=== PATIENT | female | born 1935 | race Caucasian/White ===

== ENCOUNTER → 2017-02-24 | Outpatient (CLI) | payer OTHER ==
[~2017-02-24] MED LIST: ALLEGRA ALLERG180 MG PO; ASPIR 8181 MG PO; ASPIRIN EC81 M1 PO; ATENOLOL 25 MG25 M1; ATENOLOL 50MG T50 M1 PO; CALCIUM 600 +1 EAC1 PO; CELEXA 10 MG TA10 M1; CELEXA 20 MG TA20 M1 PO; CELEXA 20 MG TA20 MG PO; CENTRUM SILVER1 EAC4 PO; CIPRO250 MG/51 PO; CLEOCIN HCL150 MG PO; CLONAZEPAM 0.50.5 M1 PO; FISH OIL 1,0001 EAC5 PO; FISH OIL 1,001000 M2 PO; FORTICAL NASAL; HYDROCODONE-AP1 EAC6 PO; LEVOTHYROXINE0.05 MG PO; LORATIDINE 10 M10 M1 PO; MYTAB GAS80 MG PO; NYSTATIN 1100000 U/M SWISH&SPIT; ONDANSETRON HCL8 MG PO; PRAVACHOL20 MG PO; PROTONIX 20 MG20 M1 PO; PROTONIX40 M2 PO; SYMBICORT80 MCG/4.1; SYNTHROID300 MCG; SYNTHROID50 MCG PO; TAMIFLU45 MG PO; TYLENOL325 MG PO; VENTOLIN HFA INH8 GM INH; VICODIN PO; VITAMIN D1000 UNI1 PO; VITAMIN D2000 UNI1 PO; ZPAK PO; [UNRECOGNIZED DRUG - OTHER] PO; [UNRECOGNIZED DRUG - OTHER] PO
== END ==
LOC: RAD 13:34
DX: Z12.31 Encounter for screening mammogram for malignant neoplasm of breast (principal)

== ENCOUNTER 2017-03-25 19:06 | Emergency (ER) | payer OTHER ==
[~2017-03-25] VITALS: Ht 152.4 cm; Wt 51.7 kg
[2017-03-25] MEDS ORDERED: RESTASIS1 EACH OPHTHALMIC (19:56)
[2017-03-25] MEDS ORDERED: ULTRAM 50MG TAB50 MG PO (20:51)
[2017-03-25] MEDS ORDERED: IBUPROFEN 600600 M1 PO (20:51)
[2017-03-25 21:00] VITALS: BP 173/67
== END 2017-03-25 21:12 | disposition home or self-care (01) ==
LOC: ER 19:06
DX: S92.912A Unspecified fracture of left toe(s), initial encounter for closed fracture (principal); E03.9 Hypothyroidism, unspecified; K21.9 Gastro-esophageal reflux disease without esophagitis; F41.9 Anxiety disorder, unspecified; F32.9 Major depressive disorder, single episode, unspecified; I12.9 Hypertensive chronic kidney disease with stage 1 through stage 4 chronic kidney disease, or unspecified chronic kidney disease; N18.9 Chronic kidney disease, unspecified; Z90.89 Acquired absence of other organs; Z96.0 Presence of urogenital implants; Z90.49 Acquired absence of other specified parts of digestive tract; Z85.3 Personal history of malignant neoplasm of breast; Z85.528 Personal history of other malignant neoplasm of kidney; Z92.21 Personal history of antineoplastic chemotherapy; Z92.3 Personal history of irradiation; Z91.041 Radiographic dye allergy status; Z88.0 Allergy status to penicillin; Z88.1 Allergy status to other antibiotic agents; Z88.8 Allergy status to other drugs, medicaments and biological substances; W20.8XXA Other cause of strike by thrown, projected or falling object, initial encounter; Y93.89 Activity, other specified; Y92.89 Other specified places as the place of occurrence of the external cause; Y99.8 Other external cause status

== ENCOUNTER → 2017-07-07 | Outpatient (CLI) | payer OTHER ==
[~2017-07-07] MED LIST changes: +IBUPROFEN 600600 M1 PO; +RESTASIS1 EACH OPHTHALMIC; +ULTRAM 50MG TAB50 MG PO
== END ==
LOC: RAD 12:47
DX: R10.9 Unspecified abdominal pain (principal); R05 Cough

== ENCOUNTER → 2017-07-09 | Outpatient (CLI) | payer OTHER | LOC: RAD 14:13 | DX: R13.10 Dysphagia, unspecified (principal) ==

== ENCOUNTER → 2017-07-28 | Outpatient (CLI) | payer OTHER ==
--- NOTE | ~2017-07-28 | P ---
[facility] [place] [address] PROCEDURE REPORT Name: IFEOMA NAVARRO Room #: REG [facility].#: [id number] Admission: 07/28/17 Attend Phys: Charanjit Nguyen Discharge: Date of : 37 Report #: [id number] THIS REPORT FOR: //name// CC: Charanjit Henderson MD DATE OF SERVICE: 07/28/2017 PROCEDURE PERFORMED: Upper endoscopy with esophageal dilation. HISTORY OF PRESENT ILLNESS: The patient is an 82-year-old female who was seen in the office by myself on 07/13/2017, with complaints of intermittent dysphagia, nausea, and vomiting. She has a previous history of gastric cancer, status post resection, chemotherapy and radiation therapy. She began taking Zofran, which was helpful. A barium swallow study on 07/09/2017, showed a single contrast esophagus study reveals functional swallow, the bolus passes completely to the right of the pharynx, this may be due to a stiff epiglottis, which does not completely invert and rest at an oblique angle. The esophagus was normal in caliber down to the stomach. There is a small sliding hiatal hernia. Multiple episodes of reflux were identified from the stomach back up into the esophagus. The distal stomach may be partial resected with an end-to-end anastomosis to the small bowel. PROCEDURE: The risks and benefits of the procedure were explained to the patient, those risks including, but not limited to bleeding, perforation, and the risk of sedation. She understood these risks and gave informed consent. Sedation was given using propofol per anesthesia. Next, using a standard Fujinon upper endoscope, the scope was placed in the patient's mouth and advanced under direct vision into the esophagus, the remaining stomach and into the duodenum and jejunum. The esophagus was normal throughout. There was no stricture or narrowing. The GE junction was normal. No esophagitis. Upon entering the stomach, a small hiatal hernia was noted. Surgical changes of the stomach were noted. There was a small remaining stomach. The anastomosis to the duodenum was widely patent. The scope passed through this area without difficulty. I was able to advance the scope well into the duodenum and jejunum, which was normal. At this point, the scope was then brought back up into the remaining stomach and a Savary guidewire was inserted through the scope, leaving the guidewire in place as the scope was then withdrawn. Next, a 48-Niuean Savary dilation of the esophagus was then performed without difficulty. The wire and dilator were removed. The scope was reintroduced into the patient's stomach. There was no evidence of mucosal tear after dilation. The scope was then withdrawn and the procedure terminated. The patient tolerated the procedure well. IMPRESSION: [facility] [address] [place] [address] PROCEDURE REPORT Name: IFEOMA NAVARRO Room #: REG [facility]#: [id number] Admission: 07/28/17 Attend Phys: Charanjit Nguyen Discharge: Date of : 36 Report #: [id number] 1. Surgical changes of gastric resection, anastomosis is patent. 2. Small hiatal hernia. 3. Otherwise, normal upper endoscopy. RECOMMENDATIONS: 1. Observe the patient post dilation. 2. If symptoms continue, consider esophageal manometry at that point. Thank you for allowing me to participate in her care. <ELECTRONICALLY SIGNED> By: Charanjit Robbins MD 07/30/17 0816 0925 1022 Charanjit Robbins MD /nt
== END | disposition home or self-care (01) ==
LOC: GI 07:40
DX: R13.19 Other dysphagia (principal); K21.9 Gastro-esophageal reflux disease without esophagitis; K44.9 Diaphragmatic hernia without obstruction or gangrene; Z85.028 Personal history of other malignant neoplasm of stomach; Z90.3 Acquired absence of stomach [part of]; Z88.0 Allergy status to penicillin; Z91.041 Radiographic dye allergy status; Z88.5 Allergy status to narcotic agent; Z91.09 Other allergy status, other than to drugs and biological substances; Z88.1 Allergy status to other antibiotic agents; Z79.82 Long term (current) use of aspirin; Z79.899 Other long term (current) drug therapy
CPT/HCPCS: 62110; 62900

== ENCOUNTER → 2018-02-24 | Outpatient (CLI) | payer OTHER | LOC: RAD 02:15 | DX: Z12.31 Encounter for screening mammogram for malignant neoplasm of breast (principal) ==

== ENCOUNTER 2018-09-17 13:05 | Emergency (ER) | payer OTHER ==
[~2018-09-17] VITALS: Ht 152.4 cm; Wt 49.2 kg
[2018-09-17] MEDS ORDERED: DYMISTA NASAL S23 GM NASAL (13:27)
[2018-09-17] MEDS ORDERED: XOLAIR150 MG (13:27)
[2018-09-17] MEDS ORDERED: TRAMADOL 50 MG50 MG PO (14:04)
[2018-09-17 14:32] VITALS: BP 112/49
== END 2018-09-17 14:35 | disposition home or self-care (01) ==
LOC: ER 13:05
DX: R06.02 Shortness of breath (principal); T42.8X5A Adverse effect of antiparkinsonism drugs and other central muscle-tone depressants, initial encounter; F32.9 Major depressive disorder, single episode, unspecified; F41.9 Anxiety disorder, unspecified; E03.9 Hypothyroidism, unspecified; I12.9 Hypertensive chronic kidney disease with stage 1 through stage 4 chronic kidney disease, or unspecified chronic kidney disease; N18.9 Chronic kidney disease, unspecified; K21.9 Gastro-esophageal reflux disease without esophagitis; Z88.8 Allergy status to other drugs, medicaments and biological substances; Z91.041 Radiographic dye allergy status; Z88.1 Allergy status to other antibiotic agents; Z88.0 Allergy status to penicillin; Z90.89 Acquired absence of other organs; Z90.49 Acquired absence of other specified parts of digestive tract; Z90.11 Acquired absence of right breast and nipple; Z85.3 Personal history of malignant neoplasm of breast; Z85.528 Personal history of other malignant neoplasm of kidney; Y92.89 Other specified places as the place of occurrence of the external cause

== ENCOUNTER → 2019-02-27 | Outpatient (CLI) | payer OTHER, SELFPAY ==
[~2019-02-27] MED LIST changes: +DYMISTA NASAL S23 GM NASAL; +TRAMADOL 50 MG50 MG PO; +XOLAIR150 MG
== END ==
LOC: BC 10:19
DX: Z12.31 Encounter for screening mammogram for malignant neoplasm of breast (principal)

== ENCOUNTER → 2019-05-22 | Outpatient (CLI) | payer OTHER, SELFPAY | LOC: ULTRA 10:25 | DX: N26.1 Atrophy of kidney (terminal) (principal); N20.9 Urinary calculus, unspecified ==

== ENCOUNTER 2019-10-21 22:52 | Emergency (ER) | payer OTHER ==
[~2019-10-21] VITALS: Ht 157.5 cm; Wt 59.0 kg
[2019-10-21] MEDS ORDERED: KEFLEX500 M1 PO (23:03)
[2019-10-21] MEDS ORDERED: BACTRIM DS TAB1 EAC1 PO (23:04)
[2019-10-21 23:19] LABS: URINE BILIRUBIN NEGATIVE (Negative); URINE BLOOD TRACE (Negative); URINE CLARITY SL CLOUDY; URINE COLOR YELLOW; URINE GLUCOSE-RANDOM* NEGATIVE (Negative); URINE KETONES NEGATIVE (Negative); URINE PROTEIN (DIPSTICK) NEGATIVE (Negative); URINE UROBILINOGEN 0.2 E.U./dl (0.2-1.0)
[2019-10-21] MEDS ORDERED: LEVO-T50 MCG PO (23:24)
[2019-10-21 23:28] LABS: URINE LEUKOCYTES-REFLEX 3+ (Negative); URINE NITRITE-REFLEX POSITIVE (Negative)
[2019-10-21 23:30] LABS: BACTERIA-REFLEX >30 Many /HPF (None Seen); CASTS None Seen /LPF (None Seen); MUCUS 0-3 Light strn/LPF (None Seen); SQUAMOUS None Seen /LPF (0-3); URINE WBC-REFLEX >25 Many /HPF (0-5); WBC CLUMPS Many (None Seen)
[2019-10-21 23:31] LABS: CRYSTALS None Seen /LPF (None Seen); URINE RBC 3-10 Few /HPF (0-2)
[2019-10-22 00:24] LABS: ANION GAP 8 mmol/L (7-16); BASOPHILS 1.1 % (0.0-2.0); BUN 27 mg/dL (7-18); CALCIUM 8.6 mg/dL (8.5-10.1); CHLORIDE 90 mmol/L (98-107); CO2 23 mmol/L (21-32); CREATININE 1.5 mg/dL (0.6-1.0); EOSINOPHILS 2.9 % (0.0-3.0); GLUCOSE 100 mg/dL (74-106); HEMATOCRIT 29.5 % (37.0-47.0); HEMOGLOBIN 9.5 gm/dL (12.0-15.0); LYMPHOCYTES 29.2 % (24.0-44.0); MCH 25.8 pg (26.0-34.0); MCHC 32.4 g/dL (28.0-37.0); MCV 79.7 fL (80.0-100.0); MONOCYTES 10.8 % (1.0-8.0); PLATELET COUNT 253 thou/uL (150-400); POTASSIUM 4.2 mmol/L (3.5-5.1); SODIUM 121 mmol/L (136-145); WBC 5.4 thou/uL (4.0-11.0)
[2019-10-22 00:34] LABS: ALBUMIN 3.6 g/dL (3.4-5.0); LIPASE 104 U/L (73-393); SGOT 19 U/L (15-37); SGPT 18 U/L (30-65); TOTAL BILIRUBIN 0.3 mg/dL (<0.1-1.0); TOTAL PROTEIN 8.1 g/dL (6.4-8.2); TROPONIN-I <0.06 ng/mL (<0.06)
[2019-10-22] MEDS ORDERED: BACTRIM DS TAB1 EACH PO (01:25)
[2019-10-22] MEDS ORDERED: FLOMAX0.4 MG PO (01:25)
[2019-10-22] MEDS ORDERED: TRAMADOL 50 MG50 MG PO (01:25)
[2019-10-22 01:59] VITALS: BP 182/62
--- NOTE | 2019-10-22 11:46 | EKG ---
[address] [place] [address] ELECTROCARDIOGRAM REPORT Name: IFEOMA NAVARRO Room #: DEP [facility]#: [id number] Admission: 10/21/19 Attend Phys: Discharge: 10/22/19 Date of : 36 Report #: [id number] THIS REPORT FOR: //name// [facility] ED Test Date: 2019-10-21 Test Time: 23:41:36 Pat Name: IFEOMA NAVARRO Department: Room: Gender: F Fertilizer Supervisor: milan juarez rn : 1935 Requested By: Fred Kumar Order Number: [id number] MD: Tano Lang Measurements Intervals [place] Rate: 57 P: 39 UT: 209 QRS: -55 QRSD: 133 T: 10 QT: 508 QTc: 495 Interpretive Statements Sinus bradycardia RBBB and LAFB Left ventricular hypertrophy Compared to ECG 11/26/2016 06:28:55 No significant changes Electronically Signed On 10-22-2019 11:45:57 ELIGIBILITY AND OCCUPANCY INTERVIEWER by Tano Lang [email or web address] <ELECTRONICALLY SIGNED> By: Taon Lang MD, [facility] 10/22/19 1145 2341 40 Tano Lang MD, FACC /EPI
--- NOTE | 2019-10-23 10:07 | EKG ---
[address] [place] [address] ELECTROCARDIOGRAM REPORT Name: IFEOMA NAVARRO Room #: DEP [facility]#: [id number] Admission: 10/21/19 Attend Phys: Discharge: 10/22/19 Date of : 36 Report #: [id number] THIS REPORT FOR: //name// [facility] ED Test Date: 2019-10-21 Test Time: 23:39:35 Pat Name: IFEOMA NAVARRO Department: Room: Gender: F Reading Recovery Teacher: milan juarez rn : 1935 Requested By: Fred Kumar Order Number: [id number] MD: Tano Lang Measurements Intervals [place] Rate: 59 P: 0 IN: 196 QRS: -32 QRSD: 132 T: -22 QT: 484 QTc: 480 Interpretive Statements Sinus rhythm IVCD, consider atypical RBBB Left ventricular hypertrophy Compared to ECG 11/26/2016 06:28:55 Missing limb lead 2 Electronically Signed On 10-23-2019 10:07:[address] INSTRUCTOR by Tano Lang [email or web address] <ELECTRONICALLY SIGNED> By: Tano Lang MD, [facility] 10/23/19 [facility] [phone] Tano Lang MD, [facility] /EPI
== END 2019-10-22 02:00 | disposition home or self-care (01) ==
LOC: ER 22:52
PROVIDERS: Emergency Medicine
DX: R33.9 Retention of urine, unspecified (principal); D50.8 Other iron deficiency anemias; R10.9 Unspecified abdominal pain; I12.9 Hypertensive chronic kidney disease with stage 1 through stage 4 chronic kidney disease, or unspecified chronic kidney disease; N18.9 Chronic kidney disease, unspecified; N13.5 Crossing vessel and stricture of ureter without hydronephrosis; N39.0 Urinary tract infection, site not specified; Z88.1 Allergy status to other antibiotic agents; Z88.0 Allergy status to penicillin; E03.9 Hypothyroidism, unspecified

== ENCOUNTER 2019-11-14 03:09 | Emergency (ER) | payer OTHER ==
[~2019-11-14] VITALS: Ht 152.4 cm; Wt 49.0 kg
[~2019-11-14 03:09] MED LIST changes: +BACTRIM DS TAB1 EAC1 PO; +BACTRIM DS TAB1 EACH PO; +FLOMAX0.4 MG PO; +KEFLEX500 M1 PO; +LEVO-T50 MCG PO
[2019-11-14] MEDS ORDERED: CEFDINIR250 MG/5 M PO (03:18)
[2019-11-14 04:03] LABS: URINE BILIRUBIN NEGATIVE (Negative); URINE BLOOD 1+ (Negative); URINE CLARITY CLOUDY; URINE COLOR YELLOW; URINE GLUCOSE-RANDOM* NEGATIVE (Negative); URINE KETONES NEGATIVE (Negative); URINE PROTEIN (DIPSTICK) NEGATIVE (Negative); URINE SPECIFIC GRAVITY <= 1.005 (1.005-1.035); URINE UROBILINOGEN 0.2 E.U./dl (0.2-1.0)
[2019-11-14 04:06] LABS: URINE LEUKOCYTES-REFLEX 3+ (Negative); URINE NITRITE-REFLEX POSITIVE (Negative)
[2019-11-14] MEDS ORDERED: SULFATRIM PEDI473 ML PO (04:27)
[2019-11-14] MEDS ORDERED: DIFLUCAN150 MG PO (04:27)
[2019-11-14 04:33] LABS: CASTS None Seen /LPF (None Seen); CRYSTALS None Seen /LPF (None Seen); MUCUS 0-3 Light strn/LPF (None Seen); SQUAMOUS 4-10 Moderate /LPF (0-3); URINE RBC 3-10 Few /HPF (0-2); URINE WBC-REFLEX >25 Many /HPF (0-5); WBC CLUMPS Moderate (None Seen)
[2019-11-14] MEDS ORDERED: CLOTRIMAZOLE-321 GM TOP (04:36)
[2019-11-14 04:54] VITALS: BP 149/95
== END 2019-11-14 04:56 | disposition home or self-care (01) ==
LOC: ER 03:09
PROVIDERS: Emergency Medicine Emergency Medical Services
DX: N39.0 Urinary tract infection, site not specified (principal); I12.9 Hypertensive chronic kidney disease with stage 1 through stage 4 chronic kidney disease, or unspecified chronic kidney disease; E03.9 Hypothyroidism, unspecified; N18.9 Chronic kidney disease, unspecified; K21.9 Gastro-esophageal reflux disease without esophagitis; F32.9 Major depressive disorder, single episode, unspecified; F41.9 Anxiety disorder, unspecified; Z90.11 Acquired absence of right breast and nipple; Z85.3 Personal history of malignant neoplasm of breast; Z90.49 Acquired absence of other specified parts of digestive tract; Z85.528 Personal history of other malignant neoplasm of kidney; Z98.51 Tubal ligation status; Z91.041 Radiographic dye allergy status; Z88.0 Allergy status to penicillin; Z88.1 Allergy status to other antibiotic agents

== ENCOUNTER → 2020-03-12 | Outpatient (CLI) | payer OTHER ==
[~2020-03-12] MED LIST changes: +CEFDINIR250 MG/5 M PO; +CLOTRIMAZOLE-321 GM TOP; +DIFLUCAN150 MG PO; +SULFATRIM PEDI473 ML PO
== END ==
LOC: BC 10:26
DX: Z12.31 Encounter for screening mammogram for malignant neoplasm of breast (principal)

== ENCOUNTER 2020-05-20 23:26 | Inpatient (IN) | payer OTHER ==
[~2020-05-20] VITALS: Ht 152.4 cm; Wt 47.6 kg
[2020-05-20 23:32] VITALS: BP 176/66
[2020-05-21] VITALS (10 sets, daily range): BP systolic 154–192; BP diastolic 61–79
[2020-05-21] MEDS ORDERED: FISH OIL 1,0001 EAC9 PO (00:40)
[2020-05-21] MEDS ORDERED: ASA81BEC PO (00:40)
[2020-05-21] MEDS ORDERED: PANTOPRAZOLE SO40 M1 PO (00:40)
[2020-05-21] MEDS ORDERED: CELEXA 20 MG TA20 MG PO (00:40)
[2020-05-21] MEDS ORDERED: CALCIUM CIT 311 EAC1 PO (00:41)
[2020-05-21 01:03] LABS: ABSOLUTE NEUTROPHILS 8.6 thou/uL (1.4-8.2); BASOPHILS 0.2 % (0.0-2.0); EOSINOPHILS 0.1 % (0.0-3.0); HEMATOCRIT 31.2 % (37.0-47.0); HEMOGLOBIN 10.2 gm/dL (12.0-15.0); LYMPHOCYTES 6.9 % (24.0-44.0); MCH 24.7 pg (26.0-34.0); MCHC 32.7 g/dL (28.0-37.0); MCV 75.3 fL (80.0-100.0); MONOCYTES 9.8 % (1.0-8.0); PLATELET COUNT 276 thou/uL (150-400); RBC 4.14 mil/uL (4.20-5.00); RDW 16.4 % (10.5-14.5); WBC 10.4 thou/uL (4.0-11.0)
[2020-05-21 01:05] LABS: CALCIUM 8.7 mg/dL (8.5-10.1); CREATININE 1.3 mg/dL (0.6-1.0); POTASSIUM 4.4 mmol/L (3.5-5.1)
[2020-05-21 01:14] LABS: ALBUMIN 3.7 g/dL (3.4-5.0); TOTAL BILIRUBIN 0.9 mg/dL (0.2-1.0); TOTAL PROTEIN 8.1 g/dL (6.4-8.2)
[2020-05-21 01:25] LABS: TROPONIN-I 11.15 ng/mL (<0.06)
[2020-05-21 02:14] LABS: INR 1.1; PROTIME 11.1 Seconds (9.3-11.4)
[2020-05-21 02:30] LABS: HEMATOCRIT 29.8 % (37.0-47.0); HEMOGLOBIN 9.8 gm/dL (12.0-15.0); MCH 24.8 pg (26.0-34.0); MCHC 33.1 g/dL (28.0-37.0); RBC 3.97 mil/uL (4.20-5.00); RDW 16.2 % (10.5-14.5); WBC 10.9 thou/uL (4.0-11.0)
--- NOTE | 2020-05-21 08:05 | EKG ---
[facility] [place] [address] ELECTROCARDIOGRAM REPORT Name: IFEOMA NAVARRO Room #: 170 ADM IN M.R.#: [id number] Admission: 05/21/20 Attend Phys: Mikal Flowers MD Discharge: Date of : 36 Report #: [id number] THIS REPORT FOR: cc: Kwabena Kebede MD, Stanley P. MD Lundgren,Tano Monae MD [facility] ~ THIS REPORT FOR: //name// [facility] ED Test Date: 2020-05-21 Test Time: 00:29:18 Pat Name: IFEOMA NAVARRO Department: Room: 170 2 Gender: F Limousine And Hearse Upholsterer: Rosendo : 1935 Requested By: Nicole Mckoy Order Number: [id number] : Tano Lang Measurements Intervals [place] Rate: 65 P: 65 SD: 185 QRS: -71 QRSD: 127 T: -13 QT: 470 QTc: 489 Interpretive Statements Sinus rhythm RBBB and LAFB Left ventricular hypertrophy Anterior ST elevation Compared to ECG 10/21/2019 23:41:36 ST (T wave) deviation more pronounced Sinus bradycardia no longer present Electronically Signed On 05-21-2020 8:05:20 CDT by Tano Lang [email or web address] <ELECTRONICALLY SIGNED> By: Tano Lang MD, [facility] 05/21/20 0805 0029 0029 Tano Lang MD, [facility] /EPI
--- NOTE | 2020-05-21 08:06 | EKG ---
[facility] [address] ELECTROCARDIOGRAM REPORT Name: IFEOMA NAVARRO Room #: 170- ADM IN M.R.#: [id number] Admission: 05/21/20 Attend Phys: Mikal Flowers MD Discharge: Date of : 36 Report #: [id number] THIS REPORT FOR: cc: Kwabean Kebede MD, Stanley P. MD Lundgren, Craig H. MD [facility] ~ THIS REPORT FOR: //name// [facility] ED Test Date: 2020-05-21 Test Time: 01:29:50 Pat Name: IFEOMA NAVARRO Department: Room: [facility] Gender: F Sugar Plantation Manager: [facility] : 1935 Requested By: Pepito Gibson Order Number: [id number] MD: Tano Lang Measurements Intervals [place] Rate: 66 P: 78 HI: 186 QRS: -70 QRSD: 126 T: -19 QT: 464 QTc: 487 Interpretive Statements Sinus rhythm Consider left atrial enlargement RBBB and LAFB Left ventricular hypertrophy Anterior ST elevation Compared to ECG 05/21/2020 00:29:18 No significant changes Electronically Signed On 05-21-2020 8:06:19 CDT by Tano Lang [email or web address] <ELECTRONICALLY SIGNED> By: Tano Lang MD, [facility] 05/21/20 0806 8 8 Tano Lang MD, [facility] /EPI
--- NOTE | 2020-05-21 08:49 | NUR ---
HOLD ACKNOWLEDGE DONE TO REQUEST ALL THE MORNING MEDS FROM THE PHARMACY.
--- NOTE | 2020-05-21 08:50 | NUR ---
PER LAB THEY HAVE ALL THE COVID TEST THEY NEED AND ARE NOT WAITING ON ANY OTHERS.
[2020-05-21 11:56] LABS: CHOLESTEROL 123 mg/dL (<200); HDL CHOLESTEROL 78 mg/dL (>40); LDL CHOLESTEROL 34 mg/dL (<100); TC:HDL 1.6 Ratio (Not establshd); TRIGLYCERIDE 57 mg/dL (<150); VLDL 11 mg/dL (<40)
[2020-05-21 12:02] LABS: TROPONIN-I 8.62 ng/mL (<0.06)
--- NOTE | 2020-05-21 12:36 | 2DMMODE ---
[facility] [place] [address] 2 D/M-MODE ECHOCARDIOGRAM Name: IFEOMA NAVARRO Room #: 160-1 ADM IN M.R.#: [id number] Admission: 05/21/20 Attend Phys: Mikal Flowers MD Discharge: Date of : 36 Report #: [id number] THIS REPORT FOR: cc: Kwabena Kebede MD, Stanley P. MD Park, Jin S. MD ~ APPROVED REPORT Study performed: 05/21/2020 11:01:45 EXAM: Comprehensive 2D, Doppler, and color-flow Echocardiogram Patient Location: In-Patient Room #: CV Holding Status: routine BSA: 1.44 HR: 60 bpm BP: 138/51 mmHg Rhythm: NSR Other Information Study Quality: Good Indications Elevated troponin, NSTEMI. Status post heart cath. 2D Dimensions RVDd: 36.26 mm IVSd: 12.03 (7-11mm) LVOT Diam: 18.79 (18-24mm) LVDd: 39.76 mm PWd: 11.00 (7-11mm) Ascending Ao: 30.69 (22-36mm) LVDs: 30.21 (25-40mm) Aortic Root: 32.18 mm Volumes Left Atrial Volume (Systole) Single Plane 4CH: 51.31 mL Single Plane 2CH: 67.80 mL LA ESV Index: 43.00 mL/m2 Aortic Valve AoV Peak Andrei.: 1.15 m/s AO Peak Gr.: 5.32 mmHg LVOT Max P.97 mmHg LVOT Max V: 0.86 m/s DOMINGO Vmax: 2.07 cm2 AI Vmax: 3.71 m/s [facility] [address] [address] 2 D/M-MODE ECHOCARDIOGRAM Name: NAVARROIFEOMA Narvaez Room #: 160-1 [facility] IN [facility]#: [id number] Admission: 05/21/20 Attend Phys: Taj Donovan Discharge: Date of : 36 Report #: [id number] AI [place]: 2.57 m/s2 AI PHT: 419.50 ms Mitral Valve E/A Ratio: 2.0 MV Decel. Time: 184.20 ms MV E Max Andrei.: 1.05 m/s MV A Andrei.: 0.52 m/s MV PHT: 53.42 ms IVRT: 78.43 ms Pulmonary Valve PV Peak Andrei.: 0.52 m/s PV Peak Gr.: 1.07 mmHg Tricuspid Valve TR Peak Andrei.: 2.42 m/s RAP Estimate: 10.00 mmHg TR Peak Gr.: 24.00 mmHg PA Pressure: 34.00 mmHg Left Ventricle The left ventricle is normal size. Hypokinesis of the inferior wall. Mild concentric left ventricular hypertrophy. Left ventricular systolic function is normal. LVEF is 50-55%. Grade IV - fixed restrictive diastolic dysfunction. Right Ventricle The right ventricle is normal size. Atria Left atrium is moderately dilated. The right atrium size is normal. Aortic Valve Aortic valve leaflets are mildly thickened. Mild to moderate aortic regurgitation. There is no aortic valvular stenosis. Mitral Valve Mitral valve leaflets are thickened. Moderate mitral regurgitation. No evidence of mitral valve stenosis. Tricuspid Valve The tricuspid valve is normal in structure. Mild to moderate tricuspid regurgitation. Estimated PAP is 30-35mmHg. Pulmonic Valve The pulmonary valve is normal in structure. Trace pulmonic [facility] [address] [place] [address] 2 D/M-MODE ECHOCARDIOGRAM Name: RAMONIFEOMA Solange Room #: 160-1 [facility] IN .R.#: [id number] Admission: 05/21/20 Attend Phys: Taj Donovan Discharge: Date of : 36 Report #: [id number] regurgitation. Great Vessels The aortic root is normal in size. The ascending aorta is normal in size. IVC is normal in size and collapses <50% with inspiration. Pericardium There is no pericardial effusion. <Conclusion> The left ventricle is normal size. Mild concentric left ventricular hypertrophy. Left ventricular systolic function is normal. Hypokinesis of the inferior wall. The right ventricle is normal size. Left atrium is moderately dilated. Mild to moderate aortic regurgitation. Moderate mitral regurgitation. Mild to moderate tricuspid regurgitation. Estimated PAP is 30-35mmHg. <ELECTRONICALLY SIGNED> By: Sav Reagan MD 05/21/20 1236 1236 1236 Sav Reagan MD /INF
--- NOTE | 2020-05-21 16:05 | NUR ---
SBP 190. Hydralazine 10 mg IV given prior to right groin line pull. Dr. Flowers in to see patient.
--- NOTE | 2020-05-21 16:07 | NUR ---
Report was called to Esperanza GILBERT on CCU by Trinidad Gutierrez RN prior to Trinidad Gutierrez leaving. This RN took over care at that time. 1550.
--- NOTE | 2020-05-21 16:21 | CATHLAB ---
[facility] [place] [address] INVASIVE PROCEDURE REPORT Name: IFEOMA NAVARRO Room #: 160-1 ADM IN M.R.#: [id number] Admission: 05/21/20 Attend Phys: Mikal Flowers MD Discharge: Date of : 36 Report #: [id number] THIS REPORT FOR: cc: Kwabena Kebede MD, Stanley P. MD Park, Jin S. MD ~ APPROVED REPORT Study performed: 05/21/2020 09:21:41 Patient Details Patient Status: ED Room #: The patient is a 85 year-old female Event Personnel Sav Reagan Acidizer Water [place], Bert Mckeon RN RN, Naida Hernandez RTR, BRITANY Scrub, Citlalli Ferguson RTR Monitor Procedures Performed Art Access - R femoral artery* Left Heart Cath w/or w/o Coronaries [id number] [facility] [address] Initial Mod Sed Same Phys/QHP Gr5y 773065 22996 Mod Sed Same Phys/QHP Ea 907169 Indication Non-STEMI , Dyspnea, Unstable angina , Chest pain Risk Factors Hypercholesterolemia, Hypertension Procedure Narrative The Right Groin^ was infiltrated with 1% Lidocaine subcutaneous anesthesia. A PINNACLE 4FR Sheath #[id number] sheath was inserted into the RFA^. Coronary angiography was performed using coronary diagnostic catheters. The right coronary system was accessed and visualized with a JR4 catheter. The left coronary system was accessed and visualized with a JL4 catheter. The left ventricle was accessed and visualized with a PIGTAIL catheter. The patient tolerated the procedure well and there were no complications associated with the procedure. Intraoperative Conscious Sedation Sedation start time: 10:09 Case end Time: 10:35 Fentanyl 25 mcg Versed 1 mg [facility] [address] [place] [address] INVASIVE PROCEDURE REPORT Name: IFEOMA NAVARRO Room #: 160-1 ADM IN [facility].#: [id number] Admission: 05/21/20 Attend Phys: Taj Donovan Discharge: Date of : 36 Report #: [id number] Fluoro Time: 2.80 minutes Dose: DAP 2446.00 cGycm2 679 mGy Contrast Type and Amount: Visipaque 40 ml Coronary Angiography The patient's coronary anatomy is right dominant. Diagnostic Cath Left Main Left main artery is a large-caliber vessel, patent with no flow-limiting lesions. LAD The LAD is a moderate-sized caliber vessel, traverses the anterior wall and wraps around the apex. There is moderate disease in the distal segment, 50%. Diagonal 1 This is a moderate-sized caliber vessel with mild disease in the proximal segment. Circumflex There is a severe occlusion within the midsegment, 80 to 90%. OM1 This is a moderate-sized caliber vessel, with a borderline stenosis proximally, recommend medical therapy. OM2 This is a patent vessel, with mild disease proximally. Right Coronary The RCA is a dominant vessel with a severe occlusion at the ostium and midsegment. R PDA This vessel is patent with mild diffuse disease. RPLV This vessel is patent with mild diffuse disease. Left Ventriculography Left Ventriculography was not performed. An LVEDP was measured and there is no gradient across the outflow tract. Hemodynamics The aortic pressure is 128/51 mmHg with a mean of 68 mmHg. The left ventricular pressure is 112/13 mmHg with a mean of mmHg. The left ventricular end diastolic pressure is 19 mmHg. Conclusion 1. 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 2. There is a borderline stenosis in the first obtuse marginal artery, recommend medical therapy. 3. Recommend percutaneous coronary intervention and guideline directed medical therapy. <ELECTRONICALLY SIGNED> By: Sav Reagan MD 05/21/20 1621 162 162 Sav Reagan MD /INF
--- NOTE | 2020-05-21 16:32 | CATHLAB ---
[facility] [place] [address] INVASIVE PROCEDURE REPORT Name: IFEOMA NAVARRO Room #: 160-1 ADM IN M.R.#: [id number] Admission: 05/21/20 Attend Phys: Mikal Flowers MD Discharge: Date of : 36 Report #: [id number] THIS REPORT FOR: cc: Kwabena Kebede MD, Stanley P. MD Park, Jin S. MD ~ APPROVED REPORT Study performed: 05/21/2020 12:27:00 Patient Details Patient Status: ED Room #: The patient is a 85 year-old female Event Personnel Sav Reagan Electronic System Engineer, Dianna Gutierrez RN RN, Naida Hernandez RTR, Muriel Cabrera Ja'net RTR Monitor Procedures Performed Art Access - R femoral artery* PAM Place w/wo Plasty Single CIRC 409098 PAM Place w/wo Plasty Single RCA 573340 76671 Initial Mod Sed Same Phys/QHP Gr5y 255933 23470 Mod Sed Same Phys/QHP Ea 895165 Indication Non-STEMI , Dyspnea, Chest pain Risk Factors Hypercholesterolemia, Hypertension Procedure Narrative The patient was brought urgently to the Cardiac Catheterization Laboratory and was prepped and draped in a sterile manner. The RFG^ was infiltrated with 1% Lidocaine subcutaneous anesthesia. A PINNACLE 6FR Sheath #998124 sheath was inserted into the RFA. Coronary angiography was performed using coronary diagnostic catheters. The patient tolerated the procedure well and there were no complications associated with the procedure. There was no hematoma. Fluoro Time: 20.20 minutes Dose: DAP 69961.00 cGycm2 Contrast Type and Amount: Omnipaque 185 ml [place] Artery Percent Stenosis [facility] [address] [place] [address] INVASIVE PROCEDURE REPORT Name: IFEOMA NAVARRO Room #: 160-1 ADM IN [facility]#: [id number] Admission: 05/21/20 Attend Phys: Taj Donovan Discharge: Date of : 36 Report #: [id number] Please see the diagnostic cardiac catheterization for full details of the coronary anatomy. The patient has severe obstruction in the left circumflex and RCA. PCI Technique Lesion Percutaneous coronary intervention was performed on the mid circumflex artery segment. The lesion stenosis prior to intervention was 90% with SHERMAN 3 flow. A VISTA 6FR XB 3.5 #600344 Guide Catheter was used to engage the CIRCUMFLEX ostium. A Luge Wire .014 x 182CM #[id number] Interventional Guidewire was used to cross the lesion. BALLOON DILATION A Balloon catheter Euphora RX 2.0 x12 #[id number] was inserted and inflated up to 8.00atm for 15seconds. STENT DEPLOYMENT A stent RESOLUTE DAPHNE RX 2.25 X 15 #[id number] was inserted and inflated up to 10.00atm for 19seconds. POST STENT DEPLOYMENT BALLOON DILATION A Balloon catheter Euphora NC RX 2.25 x 12 #[id number] was inserted and inflated up to 14.00atm for 18seconds. Additional Inflation: 14.00atm for 10seconds. Final angiography reveals 0 % stenosis with SHERMAN 3 flow. PCI Technique Lesion 2 Percutaneous Coronary Intervention was performed on the mid right coronary artery. The lesion stenosis prior to intervention was 80% with SHERMAN 3 flow. A JR4 Guide Catheter was used to engage the RCA ostium. Balloon Dilation A Balloon catheter Euphora RX 2.0 x12 #[id number] was inserted and inflated up to 15.00atm for 21seconds. Stent Deployment A stent RESOLUTE DAPHNE RX 2.25 X 15 #[id number] was inserted and inflated up to 12.00atm for 15seconds. Post Stent Deployment Balloon Dilation A Balloon catheter TREK NC RX 2.5 X 8 #[id number] was inserted and inflated up to 16atm for 15seconds. Final angiography reveals 0 % stenosis with SHERMAN 3 flow. [facility] [address] [place] [address] INVASIVE PROCEDURE REPORT Name: IFEOMA NAVARRO Room #: 160-1 [facility] IN M.R.#: [id number] Admission: 05/21/20 Attend Phys: Taj Donovan Discharge: Date of : 36 Report #: [id number] PCI Technique Lesion 3 Percutaneous Coronary Intervention was performed on the Ostial right coronary artery. The lesion stenosis prior to intervention was 70% with SHERMAN 3 flow. A JR4 Guide Catheter was used to engage the RCA ostium. A Luge Wire .014 x 182CM #[id number] Interventional Guidewire was used to cross the lesion. Balloon Dilation A Balloon catheter Euphora RX 2.0 x12 #[id number] was inserted and inflated up to 15atm for 21seconds. Stent Deployment A stent XIENCE TEDDY RX 2.25 X 12 #[id number] was inserted and inflated up to 14.00atm for 16seconds. Additional Inflation: 18.00atm for 9seconds. Post Stent Deployment Balloon Dilation A Balloon catheter TREK NC RX 2.5 X 8 #[id number] was inserted and inflated up to 14atm for 12seconds. Additional Inflation: 16atm for 11seconds. Additional Inflation: 18atm for 14seconds. Final angiography reveals 0 % stenosis with SHERMAN 3 flow. Conclusion 1. Successful insertion of a drug-eluting stent into the mid segment of the left circumflex artery. 2. Successful insertion of drug-eluting stents into the ostial and mid segments of the RCA. 3. Recommend dual antiplatelet therapy and guideline directed medical therapy. <ELECTRONICALLY SIGNED> By: Sav Reagan MD 05/21/20 1632 31 163 Sav Reagan MD /INF
--- NOTE | 2020-05-21 19:39 | NUR ---
ASSUMED CARE OF PT AT APPRO 1645 FROM OPTICS TEST TECHNICIAN. ADMISSION ORDERS AND INSTRUCTIONS COMPLETE. R GROIN SITE CDI, WITH NO HEMATOMA. NO C/O PAIN. PT ANXIOUS ABOUT BEING IN HOSPITAL ALONE. XANAX ADMINISTERED. FAMILY REQUESTS CALL FROM DURING ROUNDS PT WILL NOT REMEMBER DISCUSSION. WILL CONTINUE TO MONITOR.
[2020-05-22 00:21] VITALS: BP 139/45
[2020-05-22 05:36] VITALS: BP 146/55
--- NOTE | 2020-05-22 06:01 | NUR ---
Assumed pt care at 1900. Pt is alert and oriented with no sign of distress noted in pt. Pt is on bedrest from cath. Right groin site is intact, no sign of bleeding or hematoma noted in pt. Denies pain. After hemostasis completed, pt is stable. Assessment completed and documented. Fall precaution in place. Scheduled meds administered to pt, Tolerated PO intake. Continue to monitor pt noted.
[2020-05-22 06:04] LABS: HEMATOCRIT 28.1 % (37.0-47.0); HEMOGLOBIN 9.2 gm/dL (12.0-15.0); MCH 24.5 pg (26.0-34.0); MCHC 32.7 g/dL (28.0-37.0); MCV 74.9 fL (80.0-100.0); RBC 3.75 mil/uL (4.20-5.00); RDW 16.7 % (10.5-14.5); WBC 10.6 thou/uL (4.0-11.0)
[2020-05-22 06:39] LABS: CALCIUM 8.6 mg/dL (8.5-10.1); CREATININE 1.5 mg/dL (0.6-1.0); POTASSIUM 4.4 mmol/L (3.5-5.1); TOTAL BILIRUBIN 0.9 mg/dL (0.2-1.0)
[2020-05-22 06:58] LABS: TROPONIN-I 6.4 ng/mL (<0.06)
[2020-05-22 08:00] VITALS: BP 127/52
--- NOTE | 2020-05-22 08:39 | EKG ---
[facility] [place] [address] ELECTROCARDIOGRAM REPORT Name: IFEOMA NAVARRO Room #: 213- ADM IN M.R.#: [id number] Admission: 05/21/20 Attend Phys: Mikal Flowers MD Discharge: Date of : 36 Report #: [id number] THIS REPORT FOR: cc: Kwabena Kebede MD, Stanley P. MD Lundgren,Tano Monae MD [facility] ~ THIS REPORT FOR: //name// [facility] Test Date: 2020-05-22 Test Time: 07:01:59 Pat Name: IFEOMA NAVARRO Department: Room: 213 Gender: F Sap Abap Programmer: YANA : 1935 Requested By: Sav Reagan Order Number: [id number] MD: Tano Lang Measurements Intervals [place] Rate: 64 P: 50 NE: 173 QRS: -58 QRSD: 120 T: 2 QT: 467 QTc: 482 Interpretive Statements Sinus rhythm Incomplete RBBB and LAFB Left ventricular hypertrophy Anterior ST elevation Compared to ECG 05/21/2020 01:29:[address] segment elevation is less prominent Electronically Signed On 05-22-2020 8:39:28 CDT by Tano Lang [email or web address] <ELECTRONICALLY SIGNED> By: Tano Lang MD, [facility] 05/22/20 0839 Tano Lang MD, [facility] /EPI
[2020-05-22] MEDS ORDERED: CLOPIDOGREL75 MG PO (09:14)
[2020-05-22] MEDS ORDERED: LIPITOR40 MG PO (09:15)
[2020-05-22 10:17] VITALS: BP 127/52
--- NOTE | 2020-05-22 12:01 | NUR ---
ASSUMED CARE OF PT AT SHIFT CHANGE. ASSESSMENT CHARTED. MEDS GIVEN PER DEC. PT A&OX4, NO C/O PAIN OR DISTRESS. PT UP AD ASHLEY. R GROIN SITE CDI WITH NO BRUISING OR HEMATOMA. DISCHARGE ORDERS AND INSTRUCTIONS COMPLETE. TELE AND IV DC'D. THIS NURSE TRANSPORTED PT VIA WHEELCHAIR TO FRONT ENTRANCE TO WAITING SON AND CAR.
[2020-05-22 12:03] VITALS: BP 127/52
== END 2020-05-22 11:32 | disposition home or self-care (01) | DRG 246 ==
LOC: ER 23:26 → EROBS 05-21 02:00 → 2N 05-21 02:00 → TBACV 05-21 09:13 → 2N 05-21 17:04
PROVIDERS: Emergency Medicine; Internal Medicine Cardiovascular Disease; ADMIT Hospitalist; ATTEND Hospitalist
PROC: 4A023N7 Measurement of Cardiac Sampling and Pressure, Left Heart, Percutaneous Approach (ICD-10-PCS; principal; 2020-05-21)
PROC: B2111ZZ Fluoroscopy of Multiple Coronary Arteries using Low Osmolar Contrast (ICD-10-PCS; principal; 2020-05-21)
PROC: 027136Z Dilation of Coronary Artery, Two Arteries with Three Drug-eluting Intraluminal Devices, Percutaneous Approach (ICD-10-PCS; 2020-05-21)
DX: I21.4 Non-ST elevation (NSTEMI) myocardial infarction (principal); I50.33 Acute on chronic diastolic (congestive) heart failure; E03.9 Hypothyroidism, unspecified; K21.9 Gastro-esophageal reflux disease without esophagitis; F32.9 Major depressive disorder, single episode, unspecified; F41.9 Anxiety disorder, unspecified; D64.9 Anemia, unspecified; I12.9 Hypertensive chronic kidney disease with stage 1 through stage 4 chronic kidney disease, or unspecified chronic kidney disease; N18.3 Chronic kidney disease, stage 3 (moderate); E78.5 Hyperlipidemia, unspecified; Z88.1 Allergy status to other antibiotic agents; Z91.041 Radiographic dye allergy status; Z90.3 Acquired absence of stomach [part of]; Z90.49 Acquired absence of other specified parts of digestive tract; Z85.3 Personal history of malignant neoplasm of breast; Z85.528 Personal history of other malignant neoplasm of kidney; Z92.21 Personal history of antineoplastic chemotherapy; Z92.3 Personal history of irradiation; Z88.0 Allergy status to penicillin; Z88.8 Allergy status to other drugs, medicaments and biological substances; Z79.82 Long term (current) use of aspirin; Z79.899 Other long term (current) drug therapy; Z03.818 Encounter for observation for suspected exposure to other biological agents ruled out
CPT/HCPCS: 10081

== ENCOUNTER → 2020-05-23 | Outpatient (CLI) | payer OTHER ==
[~2020-05-23] MED LIST changes: +ASA81BEC PO; +CALCIUM CIT 311 EAC1 PO; +CLOPIDOGREL75 MG PO; +FISH OIL 1,0001 EAC9 PO; +LIPITOR40 MG PO; +PANTOPRAZOLE SO40 M1 PO
== END ==
LOC: SJCVC 11:03
PROVIDERS: ATTEND Internal Medicine Cardiovascular Disease
DX: I25.10 Atherosclerotic heart disease of native coronary artery without angina pectoris (principal); R94.31 Abnormal electrocardiogram [ECG] [EKG]; I11.9 Hypertensive heart disease without heart failure; I34.0 Nonrheumatic mitral (valve) insufficiency; E78.00 Pure hypercholesterolemia, unspecified; I25.2 Old myocardial infarction; Z79.899 Other long term (current) drug therapy

== ENCOUNTER 2020-06-05 23:14 | Observation (INO) | payer OTHER ==
[~2020-06-05] VITALS: Ht 152.4 cm; Wt 45.4 kg
[2020-06-05 23:17] VITALS: BP 157/41
[2020-06-06] VITALS (9 sets, daily range): BP systolic 136–173; BP diastolic 41–88
[2020-06-06 00:03] LABS: ABSOLUTE NEUTROPHILS 2.8 thou/uL (1.4-8.2); BASOPHILS 1.4 % (0.0-2.0); EOSINOPHILS 2.2 % (0.0-3.0); HEMATOCRIT 26.3 % (37.0-47.0); HEMOGLOBIN 8.8 gm/dL (12.0-15.0); LYMPHOCYTES 28.5 % (24.0-44.0); MCH 24.9 pg (26.0-34.0); MCHC 33.4 g/dL (28.0-37.0); MCV 74.6 fL (80.0-100.0); MONOCYTES 9.8 % (1.0-8.0); PLATELET COUNT 329 thou/uL (150-400); POLYS 58.1 % (36.0-66.0); RBC 3.52 mil/uL (4.20-5.00); RDW 16.3 % (10.5-14.5); WBC 4.8 thou/uL (4.0-11.0)
[2020-06-06 00:26] LABS: CALCIUM 8.9 mg/dL (8.5-10.1); CREATININE 1.8 mg/dL (0.6-1.0); POTASSIUM 4.6 mmol/L (3.5-5.1)
[2020-06-06 00:31] LABS: ALBUMIN 3.4 g/dL (3.4-5.0); TOTAL BILIRUBIN 0.4 mg/dL (0.2-1.0); TOTAL PROTEIN 7.8 g/dL (6.4-8.2); TROPONIN-I 0.09 ng/mL (<0.06)
--- NOTE | 2020-06-06 01:54 | NUR ---
FIRST ATTEMPT AT REPORT CALLED. LUCY TO CALL BACK.
--- NOTE | 2020-06-06 03:57 | NUR ---
Pt was an admit from ER. Pt was recently discharged two weeks ago after stent placement. Pt presented with jaw pain which had resolves upon arrival to the floor. No sign of distress noted in pt. Pt is alert and oriented. Admission assessment and data completed. Denies any pain. Pt is stable. Pt is seen by ELECTRICIAN CHIEF. Continue to monitor. No further needs at this time.
--- NOTE | 2020-06-06 07:44 | EKG ---
[facility] [place] [address] ELECTROCARDIOGRAM REPORT Name: RAMONIFEOMA Room #: 208-P ADM IN M.R.#: [id number] Admission: 06/06/20 Attend Phys: Sara Fields Discharge: Date of : 37 Report #: [id number] THIS REPORT FOR: cc: Kwabena Kebede MD, Stanley P. MD Lundgren,Tano Monae MD [facility] ~ THIS REPORT FOR: //name// [facility] ED Test Date: 2020-06-05 Test Time: 23:27:56 Pat Name: IFEOMA NAVARRO Department: Room: [facility] Gender: F Parlor Chaperone: : 1935 Requested By: Pepito Gibson Order Number: [id number] MD: Tano Lang Measurements Intervals [place] Rate: 57 P: 28 NH: 182 QRS: -61 QRSD: 126 T: 15 QT: 455 QTc: 443 Interpretive Statements Sinus rhythm Incomplete RBBB and LAFB Left ventricular hypertrophy No significant change was found Electronically Signed On 06-06-2020 7:43:55 CDT by Tano Lang [email or web address] <ELECTRONICALLY SIGNED> By: Tano Lang MD, [facility] 06/06/20 0743 [id number] Tano Lang MD, [facility] /EPI
--- NOTE | 2020-06-06 10:22 | NUR ---
Chart reviewed and case discussed with the care team. DC anticipated today to home with outpt f/u. Pt lives at home with her spouse and is indep with gait and adl's. No DME. Pt was here two weeks ago for cardiac cath with two stents. Pt admitted with unstable angina. Dc today pending cardiac clearance. Pt has pcp and ins on file for f/u care. No cm interventions indicated.
--- NOTE | 2020-06-06 18:51 | NUR ---
PT TRANSFERRED AT 18:15 FROM ROOM 208 TO ROOM 439. PT ALERT XS 4 SPEAKS NIGERIAN BUT ALSO DUTCH STATES NO PAIN V.S 97.2 16 59 138/88 O2 SAT =99 % RA REPORT FROM [address] [place] [address] NURSE BEFORE TRANSFER.
[2020-06-07 02:02] LABS: ABSOLUTE NEUTROPHILS 2.4 thou/uL (1.4-8.2); BASOPHILS 0.9 % (0.0-2.0); HEMATOCRIT 23.7 % (37.0-47.0); HEMOGLOBIN 7.7 gm/dL (12.0-15.0); MCH 24.3 pg (26.0-34.0); MCHC 32.3 g/dL (28.0-37.0); MCV 75.3 fL (80.0-100.0); PLATELET COUNT 274 thou/uL (150-400); POLYS 56.1 % (36.0-66.0); RBC 3.15 mil/uL (4.20-5.00); RDW 16.6 % (10.5-14.5); WBC 4.3 thou/uL (4.0-11.0)
[2020-06-07 02:28] LABS: CALCIUM 8.6 mg/dL (8.5-10.1); CREATININE 1.7 mg/dL (0.6-1.0); MAGNESIUM 2.1 mg/dL (1.8-2.4); POTASSIUM 4.3 mmol/L (3.5-5.1)
--- NOTE | 2020-06-07 02:39 | NUR ---
ASSUMED CARE OF PT AT 1900. PT IS A/O X4. UP AD ASHLEY. PT DENIES ANY PAIN OR DISCOMFORT. VSS. AFEBRILE. CALL LIGHT IS WITHIN REACH. WILL CONTINUE TO MONITOR.
[2020-06-07 04:00] VITALS: BP 150/42
[2020-06-07 08:47] LABS: % SATURATION 4 % (20-39); IRON 15 ug/dL (50-170); TIBC 344 ug/dL (250-450)
[2020-06-07 08:55] LABS: ABSOLUTE RETIC COUNT 0.0311 10^6/uL; OBSERVED RETIC COUNT 0.99 % (0.6-2.6)
[2020-06-07] MEDS ORDERED: KEFLEX500 M1 PO (10:10)
[2020-06-07 11:21] LABS: HEMATOCRIT 26.2 % (37.0-47.0); HEMOGLOBIN 8.7 gm/dL (12.0-15.0); MCH 24.8 pg (26.0-34.0); MCHC 33.1 g/dL (28.0-37.0); RBC 3.5 mil/uL (4.20-5.00); RDW 16.5 % (10.5-14.5); WBC 4.2 thou/uL (4.0-11.0)
[2020-06-07 11:56] VITALS: BP 169/55
[2020-06-07 17:25] VITALS: BP 134/51
--- NOTE | 2020-06-07 19:30 | NUR ---
Assumed care of pt. at 0700. Pt. is concerned about lab results on blod. Pt. has a lot of questions about care and who the attending doctors are. Many questions were answered by the helpful Nurse Practioner. She intends on going home tommorrow and returning Wednesday for an EGD.
[2020-06-07 20:00] VITALS: BP 145/48
[2020-06-08 05:35] LABS: HEMATOCRIT 23.7 % (37.0-47.0); HEMOGLOBIN 7.9 gm/dL (12.0-15.0); MCH 24.8 pg (26.0-34.0); MCHC 33.2 g/dL (28.0-37.0); MCV 74.8 fL (80.0-100.0); RBC 3.17 mil/uL (4.20-5.00); RDW 16.4 % (10.5-14.5)
--- NOTE | 2020-06-08 06:05 | NUR ---
Pt. wanting tramadol for her pain around her mouth as the tylenol was not helping. Alejandrina NGUYEN called during the shift and new orders received (see cpoe). Tramadol was given (see emar) with some relief of pain noted.
[2020-06-08 08:33] VITALS: BP 152/49
--- NOTE | 2020-06-08 11:44 | NUR ---
PT IS A&OX4, VSS, UP AD LB, CONTINENT TO BOWEL AND BLADDER, REFUSED ALL 0900 MEDS. PT STATE SHE WILL TAKE THEM AT HOME. PHYSICIAN SAW PT AND DISCHARGED THE PT. STAT COVID TEST WAS DONE ON THE PT. PT WILL BE CONTACT WITH RESULTS. PT'S IV REMOVED.
[2020-06-08 11:51] VITALS: BP 152/49
[2020-06-08 11:55] VITALS: BP 152/49
[2020-06-08 12:16] VITALS: BP 152/49
[2020-06-11] MEDS ORDERED: PLAVIX 75 MG TA75 MG PO (09:30)
== END 2020-06-08 14:29 | disposition home or self-care (01) ==
LOC: ER 23:14 → 2N 06-06 00:54 → EROBS 06-06 00:54 → 2N 06-06 00:54 → 4S 06-06 17:49
PROVIDERS: Emergency Medicine; Internal Medicine Cardiovascular Disease; Nurse Practitioner Adult Health; ADMIT Hospitalist; ATTEND Hospitalist
DX: J32.0 Chronic maxillary sinusitis (principal); E78.5 Hyperlipidemia, unspecified; I25.10 Atherosclerotic heart disease of native coronary artery without angina pectoris; I12.9 Hypertensive chronic kidney disease with stage 1 through stage 4 chronic kidney disease, or unspecified chronic kidney disease; N18.9 Chronic kidney disease, unspecified; K21.9 Gastro-esophageal reflux disease without esophagitis; D64.9 Anemia, unspecified; G47.00 Insomnia, unspecified; E03.9 Hypothyroidism, unspecified; M81.0 Age-related osteoporosis without current pathological fracture; F32.9 Major depressive disorder, single episode, unspecified; N17.9 Acute kidney failure, unspecified; Z95.818 Presence of other cardiac implants and grafts; Z79.899 Other long term (current) drug therapy; Z20.828 Contact with and (suspected) exposure to other viral communicable diseases

== ENCOUNTER → 2020-06-12 | Outpatient (CLI) | payer OTHER ==
[~2020-06-12] VITALS: Ht 152.4 cm; Wt 44.5 kg
[~2020-06-12] MED LIST changes: +PLAVIX 75 MG TA75 MG PO
[2020-06-12 10:42] LABS: HEMATOCRIT 25.1 % (37.0-47.0); MCHC 32.1 g/dL (28.0-37.0); MCV 74.7 fL (80.0-100.0); RBC 3.36 mil/uL (4.20-5.00); RDW 16.5 % (10.5-14.5); WBC 4.5 thou/uL (4.0-11.0)
[2020-06-12 11:03] LABS: CALCIUM 9.1 mg/dL (8.5-10.1); CREATININE 1.6 mg/dL (0.6-1.0)
== END | disposition home or self-care (01) ==
LOC: GI 08:28
PROVIDERS: Anesthesiology; ATTEND Specialist
DX: D64.9 Anemia, unspecified (principal); Z53.8 Procedure and treatment not carried out for other reasons; N18.9 Chronic kidney disease, unspecified; Z98.890 Other specified postprocedural states; Z79.899 Other long term (current) drug therapy; Z91.041 Radiographic dye allergy status; Z88.8 Allergy status to other drugs, medicaments and biological substances

== ENCOUNTER → 2020-06-17 | Outpatient (CLI) | payer OTHER | LOC: SJCVC 11:15 | PROVIDERS: ATTEND Internal Medicine Cardiovascular Disease | DX: D50.8 Other iron deficiency anemias (principal); I10 Essential (primary) hypertension; I25.2 Old myocardial infarction; E78.5 Hyperlipidemia, unspecified; K21.9 Gastro-esophageal reflux disease without esophagitis; Z79.899 Other long term (current) drug therapy ==

== ENCOUNTER → 2020-06-25 | Outpatient (CLI) | payer OTHER | LOC: SJCVC 11:09 | PROVIDERS: ATTEND Internal Medicine Cardiovascular Disease | DX: I25.10 Atherosclerotic heart disease of native coronary artery without angina pectoris (principal); R94.31 Abnormal electrocardiogram [ECG] [EKG]; I44.4 Left anterior fascicular block; I45.2 Bifascicular block; I49.9 Cardiac arrhythmia, unspecified; E78.00 Pure hypercholesterolemia, unspecified; I34.0 Nonrheumatic mitral (valve) insufficiency; Z79.899 Other long term (current) drug therapy ==

== ENCOUNTER → 2020-08-08 | Outpatient (CLI) | payer OTHER | LOC: SJCVC 13:11 | PROVIDERS: ATTEND Internal Medicine Cardiovascular Disease | DX: I45.2 Bifascicular block (principal); R00.1 Bradycardia, unspecified; R94.31 Abnormal electrocardiogram [ECG] [EKG]; I25.10 Atherosclerotic heart disease of native coronary artery without angina pectoris; I34.0 Nonrheumatic mitral (valve) insufficiency; I10 Essential (primary) hypertension; E78.00 Pure hypercholesterolemia, unspecified; D64.9 Anemia, unspecified; K21.9 Gastro-esophageal reflux disease without esophagitis; E78.5 Hyperlipidemia, unspecified; I25.2 Old myocardial infarction; Z98.61 Coronary angioplasty status; Z79.899 Other long term (current) drug therapy ==

== ENCOUNTER 2020-08-12 15:31 | Emergency (ER) | payer OTHER ==
[~2020-08-12] VITALS: Ht 152.4 cm; Wt 40.8 kg
[2020-08-12 16:30] LABS: ABSOLUTE NEUTROPHILS 4.8 thou/uL (1.4-8.2); BASOPHILS 1.4 % (0.0-2.0); EOSINOPHILS 2.4 % (0.0-3.0); HEMATOCRIT 23.2 % (37.0-47.0); HEMOGLOBIN 7.2 gm/dL (12.0-15.0); LYMPHOCYTES 16.4 % (24.0-44.0); MCH 21.6 pg (26.0-34.0); MCHC 30.9 g/dL (28.0-37.0); MCV 69.8 fL (80.0-100.0); MONOCYTES 8.3 % (1.0-8.0); PLATELET COUNT 298 thou/uL (150-400); POLYS 71.5 % (36.0-66.0); RBC 3.33 mil/uL (4.20-5.00); RDW 16.6 % (10.5-14.5); WBC 6.6 thou/uL (4.0-11.0)
[2020-08-12 16:39] LABS: CREATININE 1.7 mg/dL (0.6-1.0); POTASSIUM 4.1 mmol/L (3.5-5.1)
[2020-08-12 16:45] LABS: ALBUMIN 3.7 g/dL (3.4-5.0); TOTAL BILIRUBIN 0.4 mg/dL (0.2-1.0); TOTAL PROTEIN 8.2 g/dL (6.4-8.2)
[2020-08-12 16:53] LABS: ANISOCYTOSIS 2+; MICROCYTES 2+
[2020-08-12 16:54] LABS: HYPOCHROMASIA SLIGHT; OVALOCYTES FEW; POLYCHROMASIA OCCASIONAL
[2020-08-12 19:30] VITALS: BP 165/49
[2020-08-12 23:30] VITALS: BP 153/47
== END 2020-08-12 23:31 | disposition home or self-care (01) ==
LOC: ER 15:31
PROVIDERS: Nurse Practitioner
DX: D64.9 Anemia, unspecified (principal); I10 Essential (primary) hypertension; E03.9 Hypothyroidism, unspecified; E78.5 Hyperlipidemia, unspecified; K21.9 Gastro-esophageal reflux disease without esophagitis; Z79.899 Other long term (current) drug therapy; Z79.01 Long term (current) use of anticoagulants; Z88.0 Allergy status to penicillin; Z88.1 Allergy status to other antibiotic agents; Z88.8 Allergy status to other drugs, medicaments and biological substances; Z91.041 Radiographic dye allergy status

== ENCOUNTER → 2020-10-04 | Outpatient (CLI) | payer OTHER | LOC: SJCVC 10:30 | PROVIDERS: ATTEND Internal Medicine Cardiovascular Disease | DX: I44.4 Left anterior fascicular block (principal); R00.1 Bradycardia, unspecified; I11.9 Hypertensive heart disease without heart failure; R94.31 Abnormal electrocardiogram [ECG] [EKG]; I25.10 Atherosclerotic heart disease of native coronary artery without angina pectoris; I34.0 Nonrheumatic mitral (valve) insufficiency; E78.00 Pure hypercholesterolemia, unspecified; D64.9 Anemia, unspecified; K21.9 Gastro-esophageal reflux disease without esophagitis; E78.5 Hyperlipidemia, unspecified; I25.2 Old myocardial infarction; Z79.899 Other long term (current) drug therapy ==

== ENCOUNTER → 2020-10-28 | Outpatient (CLI) | payer OTHER | LOC: LAB 09:33 | PROVIDERS: ATTEND Specialist | DX: Z01.812 Encounter for preprocedural laboratory examination (principal); Z20.822 Contact with and (suspected) exposure to COVID-19 ==

== ENCOUNTER → 2020-11-01 | Outpatient (CLI) | payer OTHER ==
[~2020-11-01] VITALS: Ht 152.4 cm; Wt 45.4 kg
--- NOTE | 2020-11-01 14:26 | P ---
[facility] [address] [place] [address] PROCEDURE REPORT Name: FIEOMA NAVARRO Room #: REG [facility].#: [id number] Admission: 11/01/20 Attend Phys: Charanjit Nguyen Discharge: Date of : 37 Report #: [id number] THIS REPORT FOR: cc: Kwabena Kebede MD, Stanley P. MD McElhinney, Christian C. MD ~ DATE OF SERVICE: 11/01/2020 PROCEDURE PERFORMED: Colonoscopy. HISTORY OF PRESENT ILLNESS: The patient is an 85-year-old female with a history of anemia. Please see EGD, HPI for detailed history. Last colonoscopy was in 2013, small polyp was removed. No family history of colon cancer. Bowel movements have been normal. DESCRIPTION OF PROCEDURE: The risks and benefits of the procedure were explained to the patient. Those risks including but not limited to bleeding, perforation and the risk of sedation. She understood these risks and gave informed consent. Sedation was given using propofol per anesthesia. Next, a digital rectal exam was initially performed, which was normal. Next, using a standard Olympus colonoscope, the scope was placed in the patient's anus and advanced under direct vision to the cecum. The overall prep was good. The cecum and ileocecal valve were normal in appearance. The ascending and transverse colon were normal. Multiple diverticula were noted in the descending and sigmoid colon, no evidence of inflammation, otherwise normal. The rectal mucosa was normal. On retroflexion, no abnormalities were noted. Scope was then withdrawn and the procedure terminated. The patient tolerated the procedure well. IMPRESSION: 1. Left-sided diverticulosis. 2. Otherwise, normal colonoscopy. RECOMMENDATIONS: 1. Observe the patient post-procedure. 2. See EGD report. Thank you for allowing me to participate in her care. <ELECTRONICALLY SIGNED> By: Charanjit Robbins MD 11/01/20 1426 1006 1051 Charanjit Robbins MD /nt
--- NOTE | 2020-11-01 14:26 | P ---
[facility] [place] [address] [place] [address] PROCEDURE REPORT Name: IFEOMA NAVARRO [id number] Admission: 11/01/20 Attend Phys: Charanjit Nguyen Discharge: Date of : 37 Report #: [id number] THIS REPORT FOR: cc: Kwabena Kebede MD, Stanley P. MD McElhinney, Christian C. MD ~ DATE OF SERVICE: 11/01/2020 PROCEDURE PERFORMED: Upper endoscopy with bleeding control. HISTORY OF PRESENT ILLNESS: The patient is an 85-year-old female with a history of anemia. She underwent stent placement for coronary artery disease in May of this year and at that time was on aspirin and Plavix. She did have an episode of melanotic type stools around that time and was hospitalized. Hemoglobin at that time was 7.7. She has ___ been on PPI therapy. Her last EGD was in 2016, which showed surgical changes of gastric resection. The patient has had a previous history of gastric cancer, status post partial gastrectomy many years ago that included chemotherapy and radiation as well. Last colonoscopy was in 2013 in which multiple diverticula were noted and the small polyp was removed. The patient has been improving. She has received IV iron. Most recent hemoglobin has been 10.5 range. She has now been off her Plavix for the last month. She is taking aspirin, but this has been held for the last 5 days. She does report mild heartburn symptoms at times. Her bowel movements have been normal. She denies any nausea, vomiting or dysphagia. Plan is for EGD and colonoscopy. DESCRIPTION OF PROCEDURE: The risks and benefits of the procedure were explained to the patient, those risks including but not limited to bleeding, perforation and the risk of sedation. She understood these risks and gave informed consent. Sedation was given using propofol per anesthesia. Next, using a standard Olympus upper endoscope, the scope was placed in the patient's mouth and advanced under direct vision through her esophagus into her remaining stomach through the anastomosis and into the jejunum. The esophagus was normal throughout. The GE junction was normal. Upon entering the stomach, obvious surgical changes were noted consistent with her partial gastrectomy only a small gastric pouch remained. There was a single nonbleeding AVM in the gastric mucosa because of her history of anemia, this was cauterized with a 7-Northern Irish bipolar cautery. No evidence of bleeding was noted after cauterization. The scope was passed through the anastomosis, which was somewhat narrowed and into the jejunum, which was normal. As the scope was then slowly withdrawn, another small AVM, nonbleeding was noted in the duodenojejunal area. Also, cauterized with 7-Northern Irish bipolar cautery. At this point, the scope was then withdrawn and the procedure terminated. The patient tolerated the procedure well. IMPRESSION: [facility] [address] [place] [address] PROCEDURE REPORT Name: IFEOMA NAVARRO [facility] [id number] Admission: 11/01/20 Attend Phys: Charanjit Nguyen Discharge: Date of : 37 Report #: [id number] 1. Gastric and small bowel, nonbleeding AVM. Both were cauterized with 7-Northern Irish bipolar cautery. 2. Surgical changes of the stomach again noted. 3. Otherwise, normal upper endoscopy. RECOMMENDATIONS: 1. Observe the patient post-procedure. 2. We will proceed with colonoscopy next today. 3. Continue PPI therapy. Thank you for allowing me to participate in her care. <ELECTRONICALLY SIGNED> By: Charanjit Robbins MD 11/01/20 1426 1004 1036 Charanjit Robbins MD /nt
== END | disposition home or self-care (01) ==
LOC: GI 07:27
PROVIDERS: ATTEND Specialist
DX: D64.9 Anemia, unspecified (principal); K57.30 Diverticulosis of large intestine without perforation or abscess without bleeding; K31.811 Angiodysplasia of stomach and duodenum with bleeding; K21.9 Gastro-esophageal reflux disease without esophagitis; I12.9 Hypertensive chronic kidney disease with stage 1 through stage 4 chronic kidney disease, or unspecified chronic kidney disease; N18.9 Chronic kidney disease, unspecified; I25.10 Atherosclerotic heart disease of native coronary artery without angina pectoris; F32.9 Major depressive disorder, single episode, unspecified; F41.9 Anxiety disorder, unspecified; E03.9 Hypothyroidism, unspecified; E78.5 Hyperlipidemia, unspecified; Z86.010 Personal history of colon polyps; Z79.890 Hormone replacement therapy; Z79.82 Long term (current) use of aspirin; Z79.01 Long term (current) use of anticoagulants; Z79.899 Other long term (current) drug therapy; Z90.49 Acquired absence of other specified parts of digestive tract; Z95.5 Presence of coronary angioplasty implant and graft; Z88.0 Allergy status to penicillin; Z88.1 Allergy status to other antibiotic agents
CPT/HCPCS: 62110; 62900

== ENCOUNTER → 2020-11-07 | Outpatient (CLI) | payer OTHER | LOC: SJCVC 12:48 | PROVIDERS: ATTEND Internal Medicine Cardiovascular Disease | DX: E78.2 Mixed hyperlipidemia (principal); E03.9 Hypothyroidism, unspecified; I10 Essential (primary) hypertension; D64.9 Anemia, unspecified; R94.4 Abnormal results of kidney function studies; Z88.1 Allergy status to other antibiotic agents; Z88.0 Allergy status to penicillin; Z88.8 Allergy status to other drugs, medicaments and biological substances ==

== ENCOUNTER → 2020-11-19 | Outpatient (CLI) | payer OTHER | LOC: LAB 08:44 | PROVIDERS: ATTEND Anesthesiology | DX: Z01.812 Encounter for preprocedural laboratory examination (principal); Z20.822 Contact with and (suspected) exposure to COVID-19 ==

== ENCOUNTER → 2020-12-16 | Outpatient (CLI) | payer OTHER | LOC: SJCVC 13:58 | PROVIDERS: ATTEND Internal Medicine Cardiovascular Disease | DX: R94.31 Abnormal electrocardiogram [ECG] [EKG] (principal); I49.1 Atrial premature depolarization; I45.10 Unspecified right bundle-branch block; I25.10 Atherosclerotic heart disease of native coronary artery without angina pectoris; I11.9 Hypertensive heart disease without heart failure; E78.00 Pure hypercholesterolemia, unspecified; D64.9 Anemia, unspecified; K21.9 Gastro-esophageal reflux disease without esophagitis; I25.2 Old myocardial infarction; E87.1 Hypo-osmolality and hyponatremia; Z79.82 Long term (current) use of aspirin; Z79.899 Other long term (current) drug therapy; Z88.0 Allergy status to penicillin; Z88.8 Allergy status to other drugs, medicaments and biological substances; Z85.3 Personal history of malignant neoplasm of breast ==

== ENCOUNTER → 2020-12-26 | Outpatient (CLI) | payer OTHER | LOC: SJCVCIMAG 12-24 15:03 | PROVIDERS: ATTEND Internal Medicine Cardiovascular Disease | DX: R00.1 Bradycardia, unspecified (principal); I25.10 Atherosclerotic heart disease of native coronary artery without angina pectoris; E78.00 Pure hypercholesterolemia, unspecified; D64.9 Anemia, unspecified; K21.9 Gastro-esophageal reflux disease without esophagitis; I25.2 Old myocardial infarction; I10 Essential (primary) hypertension; E78.5 Hyperlipidemia, unspecified; Z79.82 Long term (current) use of aspirin; Z79.899 Other long term (current) drug therapy; Z98.61 Coronary angioplasty status ==

== ENCOUNTER 2021-01-11 00:23 | Emergency (ER) | payer OTHER ==
[~2021-01-11] VITALS: Ht 152.4 cm; Wt 45.4 kg
[2021-01-11 01:04] LABS: URINE BILIRUBIN NEGATIVE (Negative); URINE BLOOD 3+ (Negative); URINE CLARITY CLEAR; URINE COLOR YELLOW; URINE GLUCOSE-RANDOM* NEGATIVE (Negative); URINE KETONES NEGATIVE (Negative); URINE LEUKOCYTES-REFLEX TRACE (Negative); URINE NITRITE-REFLEX NEGATIVE (Negative); URINE PROTEIN (DIPSTICK) 2+ (Negative); URINE SPECIFIC GRAVITY 1.015 (1.005-1.035); URINE UROBILINOGEN 0.2 E.U./dl (0.2-1.0)
[2021-01-11 01:05] LABS: ABSOLUTE NEUTROPHILS 5.1 thou/uL (1.4-8.2); BASOPHILS 0.2 % (0.0-2.0); EOSINOPHILS 0.1 % (0.0-3.0); HEMATOCRIT 34.2 % (37.0-47.0); HEMOGLOBIN 11.5 gm/dL (12.0-15.0); LYMPHOCYTES 8.5 % (24.0-44.0); MCH 30.5 pg (26.0-34.0); MCHC 33.5 g/dL (28.0-37.0); MCV 90.9 fL (80.0-100.0); MONOCYTES 1.5 % (1.0-8.0); PLATELET COUNT 224 thou/uL (150-400); POLYS 89.7 % (36.0-66.0); RBC 3.76 mil/uL (4.20-5.00); RDW 13.3 % (10.5-14.5); WBC 5.7 thou/uL (4.0-11.0)
[2021-01-11 01:08] LABS: CALCIUM 9.1 mg/dL (8.5-10.1); CREATININE 1.9 mg/dL (0.6-1.0)
[2021-01-11 01:14] LABS: ALBUMIN 3.8 g/dL (3.4-5.0); TOTAL BILIRUBIN 0.4 mg/dL (0.2-1.0); TOTAL PROTEIN 8.1 g/dL (6.4-8.2)
[2021-01-11 01:19] LABS: BACTERIA-REFLEX 1-9 Few /HPF (None Seen); CASTS None Seen /LPF (None Seen); CRYSTALS None Seen /LPF (None Seen); MUCUS 0-3 Light strn/LPF (None Seen); SQUAMOUS 0-3 Few /LPF (0-3); URINE WBC-REFLEX 0-5 Rare /HPF (0-5)
[2021-01-11] MEDS ORDERED: SYNTHROID50 MCG PO (01:56)
[2021-01-11] MEDS ORDERED: CARVEDILOL25 MG PO (01:56)
[2021-01-11] MEDS ORDERED: ROSUVASTATIN CA10 MG PO (01:56)
[2021-01-11] MEDS ORDERED: ALLERGY RELIEF180 MG PO (02:01)
[2021-01-11] MEDS ORDERED: FISH OIL 1,0001 EAC9 PO (02:01)
[2021-01-11 03:45] VITALS: BP 158/87
== END 2021-01-11 03:45 | disposition home or self-care (01) ==
LOC: ER 00:23
PROVIDERS: Emergency Medicine
DX: R33.9 Retention of urine, unspecified (principal); I10 Essential (primary) hypertension; E03.9 Hypothyroidism, unspecified; E78.5 Hyperlipidemia, unspecified; K21.9 Gastro-esophageal reflux disease without esophagitis; Z86.2 Personal history of diseases of the blood and blood-forming organs and certain disorders involving the immune mechanism; Z79.899 Other long term (current) drug therapy; Z79.82 Long term (current) use of aspirin; Z88.0 Allergy status to penicillin; Z88.1 Allergy status to other antibiotic agents; Z91.041 Radiographic dye allergy status

== ENCOUNTER → 2021-01-14 | Outpatient (CLI) | payer OTHER ==
[~2021-01-14] MED LIST changes: +ALLERGY RELIEF180 MG PO; +CARVEDILOL25 MG PO; +ROSUVASTATIN CA10 MG PO
== END ==
LOC: SJCVC 13:14
PROVIDERS: ATTEND Internal Medicine Cardiovascular Disease
DX: R94.31 Abnormal electrocardiogram [ECG] [EKG] (principal); I11.9 Hypertensive heart disease without heart failure; I25.10 Atherosclerotic heart disease of native coronary artery without angina pectoris; E78.00 Pure hypercholesterolemia, unspecified; D64.9 Anemia, unspecified; G21.9 Secondary parkinsonism, unspecified; I25.2 Old myocardial infarction; Z98.61 Coronary angioplasty status; Z88.0 Allergy status to penicillin; Z88.8 Allergy status to other drugs, medicaments and biological substances; Z79.82 Long term (current) use of aspirin; Z79.899 Other long term (current) drug therapy

== ENCOUNTER → 2021-02-19 | Outpatient (CLI) | payer OTHER ==
[~2021-02-19] MED LIST changes: +ALLERGY SYRING1 EAC1 SUBQ; +CYCLOPENTOLA1 %/2 M1 EA. EYE; +LEXAPRO20 MG PO; +NORVASC5 MG PO; +ZOFRAN4 MG PO
== END ==
LOC: SJCVCIMAG 08:44
PROVIDERS: ATTEND Internal Medicine Cardiovascular Disease
DX: N28.0 Ischemia and infarction of kidney (principal); N26.1 Atrophy of kidney (terminal); I10 Essential (primary) hypertension; N13.39 Other hydronephrosis; R94.31 Abnormal electrocardiogram [ECG] [EKG]; I45.10 Unspecified right bundle-branch block; I73.9 Peripheral vascular disease, unspecified; I25.10 Atherosclerotic heart disease of native coronary artery without angina pectoris; T83.122A Displacement of indwelling ureteral stent, initial encounter; K21.9 Gastro-esophageal reflux disease without esophagitis; E78.5 Hyperlipidemia, unspecified; F32.9 Major depressive disorder, single episode, unspecified; R60.9 Edema, unspecified; I25.2 Old myocardial infarction; Z96.0 Presence of urogenital implants; Z98.61 Coronary angioplasty status; Z88.8 Allergy status to other drugs, medicaments and biological substances; Z88.0 Allergy status to penicillin; Z79.82 Long term (current) use of aspirin; Z79.899 Other long term (current) drug therapy; Y83.8 Other surgical procedures as the cause of abnormal reaction of the patient, or of later complication, without mention of misadventure at the time of the procedure; Y82.8 Other medical devices associated with adverse incidents

== ENCOUNTER → 2021-02-26 | Outpatient (CLI) | payer OTHER ==
[~2021-02-26] VITALS: Ht 152.4 cm; Wt 45.4 kg
[2021-02-26 07:12] VITALS: BP 191/67
[2021-02-26 08:24] LABS: HEMATOCRIT 37.4 % (37.0-47.0); HEMOGLOBIN 12.7 gm/dL (12.0-15.0); MCH 30.8 pg (26.0-34.0); MCHC 33.9 g/dL (28.0-37.0); MCV 90.7 fL (80.0-100.0); RBC 4.12 mil/uL (4.20-5.00); RDW 13.4 % (10.5-14.5); WBC 5.9 thou/uL (4.0-11.0)
[2021-02-26 08:40] LABS: CALCIUM 9.4 mg/dL (8.5-10.1); CREATININE 1.5 mg/dL (0.6-1.0); POTASSIUM 4.1 mmol/L (3.5-5.1)
== END | disposition home or self-care (01) ==
LOC: CATH 06:45
PROVIDERS: ATTEND Nuclear Medicine Nuclear Cardiology
DX: I70.1 Atherosclerosis of renal artery (principal); I70.203 Unspecified atherosclerosis of native arteries of extremities, bilateral legs; M79.604 Pain in right leg; M79.605 Pain in left leg; I12.9 Hypertensive chronic kidney disease with stage 1 through stage 4 chronic kidney disease, or unspecified chronic kidney disease; N18.9 Chronic kidney disease, unspecified; E03.9 Hypothyroidism, unspecified; E78.5 Hyperlipidemia, unspecified; D64.9 Anemia, unspecified; F32.9 Major depressive disorder, single episode, unspecified; F41.9 Anxiety disorder, unspecified; K21.9 Gastro-esophageal reflux disease without esophagitis; I25.2 Old myocardial infarction; Z98.890 Other specified postprocedural states; Z79.899 Other long term (current) drug therapy; Z90.49 Acquired absence of other specified parts of digestive tract; Z85.3 Personal history of malignant neoplasm of breast; Z85.528 Personal history of other malignant neoplasm of kidney; Z85.028 Personal history of other malignant neoplasm of stomach; Z98.51 Tubal ligation status

== ENCOUNTER → 2021-03-12 | Outpatient (CLI) | payer OTHER | LOC: BC 09:39 | PROVIDERS: ATTEND Internal Medicine | DX: Z12.31 Encounter for screening mammogram for malignant neoplasm of breast (principal) ==

== ENCOUNTER 2021-04-16 10:22 | Emergency (ER) | payer OTHER ==
[~2021-04-16] VITALS: Ht 152.4 cm; Wt 45.4 kg
[2021-04-16 13:45] LABS: ABSOLUTE NEUTROPHILS 4.1 thou/uL (1.4-8.2); BASOPHILS 0.6 % (0.0-2.0); EOSINOPHILS 1.4 % (0.0-3.0); HEMATOCRIT 30.5 % (37.0-47.0); HEMOGLOBIN 10.5 gm/dL (12.0-15.0); LYMPHOCYTES 11.7 % (24.0-44.0); MCH 31.2 pg (26.0-34.0); MCHC 34.5 g/dL (28.0-37.0); MCV 90.6 fL (80.0-100.0); MONOCYTES 13.6 % (1.0-8.0); PLATELET COUNT 187 thou/uL (150-400); POLYS 72.7 % (36.0-66.0); RBC 3.37 mil/uL (4.20-5.00); WBC 5.6 thou/uL (4.0-11.0)
[2021-04-16 13:55] LABS: CALCIUM 8.7 mg/dL (8.5-10.1); CREATININE 1.5 mg/dL (0.6-1.0); POTASSIUM 4.3 mmol/L (3.5-5.1)
[2021-04-16 14:07] LABS: INR 1.05; PROTIME 11.4 Seconds (10.5-12.1)
--- NOTE | 2021-04-16 14:44 | EKG ---
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: ALEKSANDR : 1935 Requested By: Yaquelin Askew Order Number: [id number] MD: Jarvis Campo Measurements Intervals [place] Rate: 60 P: 14 IN: 180 QRS: -57 QRSD: 121 T: -9 QT: 449 QTc: 449 Interpretive Statements Sinus rhythm RBBB and LAFB Left ventricular hypertrophy Compared to ECG 06/05/2020 23:27:56 Incomplete right bundle-branch block no longer present Electronically Signed On 04-16-2021 14:44:34 CDT by Jarvis Campo [email or web address] <ELECTRONICALLY SIGNED> By: Jarvis Campo MD, [facility] 04/16/21 1444 1353 1353 Jarvis Campo MD, FACC /EPI
[2021-04-16 17:33] VITALS: BP 171/47
== END 2021-04-16 17:33 | disposition short-term general hospital (02) ==
LOC: ER 10:22
PROVIDERS: Emergency Medicine
DX: S06.5X0A Traumatic subdural hemorrhage without loss of consciousness, initial encounter (principal); N18.9 Chronic kidney disease, unspecified; F41.9 Anxiety disorder, unspecified; I25.10 Atherosclerotic heart disease of native coronary artery without angina pectoris; Z85.3 Personal history of malignant neoplasm of breast; Z79.82 Long term (current) use of aspirin; Z79.83 Long term (current) use of bisphosphonates; Z79.899 Other long term (current) drug therapy; Z91.041 Radiographic dye allergy status; Z88.0 Allergy status to penicillin; Z88.2 Allergy status to sulfonamides; Z88.8 Allergy status to other drugs, medicaments and biological substances; W18.39XA Other fall on same level, initial encounter; Y93.89 Activity, other specified; Y92.098 Other place in other non-institutional residence as the place of occurrence of the external cause; Y99.8 Other external cause status; I12.9 Hypertensive chronic kidney disease with stage 1 through stage 4 chronic kidney disease, or unspecified chronic kidney disease; E03.9 Hypothyroidism, unspecified; K21.9 Gastro-esophageal reflux disease without esophagitis

== ENCOUNTER → 2021-05-28 | Outpatient (CLI) | payer OTHER | LOC: SJCVC 10:38 | PROVIDERS: ATTEND Internal Medicine Cardiovascular Disease | DX: R94.31 Abnormal electrocardiogram [ECG] [EKG] (principal); I11.9 Hypertensive heart disease without heart failure; I49.9 Cardiac arrhythmia, unspecified; I25.10 Atherosclerotic heart disease of native coronary artery without angina pectoris; I70.1 Atherosclerosis of renal artery; E78.00 Pure hypercholesterolemia, unspecified; D64.9 Anemia, unspecified; R60.9 Edema, unspecified; K21.9 Gastro-esophageal reflux disease without esophagitis; I25.2 Old myocardial infarction; E78.5 Hyperlipidemia, unspecified; Z95.5 Presence of coronary angioplasty implant and graft; Z88.0 Allergy status to penicillin; Z88.8 Allergy status to other drugs, medicaments and biological substances; Z98.890 Other specified postprocedural states; Z79.899 Other long term (current) drug therapy; Z85.3 Personal history of malignant neoplasm of breast ==

== ENCOUNTER → 2021-06-30 | Outpatient (CLI) | payer OTHER | LOC: SJCVC 07:35 | PROVIDERS: ATTEND Nuclear Medicine Nuclear Cardiology | DX: I65.23 Occlusion and stenosis of bilateral carotid arteries (principal); I70.1 Atherosclerosis of renal artery; N28.0 Ischemia and infarction of kidney; I25.10 Atherosclerotic heart disease of native coronary artery without angina pectoris; I77.9 Disorder of arteries and arterioles, unspecified; I10 Essential (primary) hypertension; I73.9 Peripheral vascular disease, unspecified; E78.00 Pure hypercholesterolemia, unspecified; K21.9 Gastro-esophageal reflux disease without esophagitis; E78.5 Hyperlipidemia, unspecified; Z79.899 Other long term (current) drug therapy; Z88.1 Allergy status to other antibiotic agents; Z88.0 Allergy status to penicillin; Z88.5 Allergy status to narcotic agent; Z88.8 Allergy status to other drugs, medicaments and biological substances ==

== ENCOUNTER → 2021-07-02 | Day surgery (SDC) | payer OTHER ==
[~2021-07-02] VITALS: Ht 152.4 cm; Wt 45.4 kg
--- NOTE | ~2021-07-02 | O ---
[facility] [place] [place] [address] OPERATIVE REPORT Name: IFEOMA NAVARRO Room #: REG [facility] M..#: [id number] Admission: 07/02/21 Attend Phys: Davide Herrera MD Discharge: Date of : 37 Report #: [id number] THIS REPORT FOR: cc: Vidal West MD,Vidal Herrera,Davide URBAN ~ cc: Srinivasan West MD DATE OF SERVICE: 07/02/2021 PREOPERATIVE DIAGNOSIS: Right hydronephrosis. POSTOPERATIVE DIAGNOSIS: Right hydronephrosis. PROCEDURES PERFORMED: Cystoscopy, right retrograde pyelogram, right ureteral stent exchange, examination under anesthesia. SURGEON: Dr. Herrera. ANESTHESIA: General plus 10 mL of Uro-Jet. INDICATIONS FOR PROCEDURE: The patient is an 86-year-old woman with right hydronephrosis and right UPJ obstruction. She has been managed for several years with an indwelling right ureteral stent. She was previously seeing Dr. Mustafa and Dr. Kay and she recently transferred her care to co. She also was complaining of some new onset of incontinence. She has no fevers or chills and she was brought to the operating room for evaluation. DESCRIPTION OF PROCEDURE: After obtaining informed consent, she was brought to the operating room and general anesthetic was administered. She was prepped and draped in lithotomy position by the operating personnel under anesthesia supervision. I discussed risks, benefits, complications to procedure, understanding that I cannot anticipate all outcomes. I discussed risks with complications of antibiotics. Once she was prepped and draped in the lithotomy position and a timeout was performed, appropriate fluoroscopic images were obtained, which revealed a stent to be in its proper anatomical position with no abnormalities. The 21-[place] Islander ACMI cystoscope was introduced under direct vision. The bladder was smooth walled. No intrinsic mucosal lesions. The trigone and ureters were normal in configuration and location. The stent was seen emanating from the right ureteral orifice. I removed the stent through the urethra and placed a ZIPwire through the stent and then removed the stent, leaving the ZIPwire in place. Over the ZIPwire, I placed a 5-[place] Islander open-ended ureteral catheter. Contrast was injected. 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 I then replaced the wire and over the wire, I placed a 7-Sol[place] Islander x 22 cm Contour stent. The proximal curl was in the right [address] [address] OPERATIVE REPORT Name: IFEOMA NAVARRO Room #: REG [facility].#: [id number] Admission: 07/02/21 Attend Phys: Davide Herrera MD Discharge: Date of : 37 Report #: [id number] renal pelvis and distal curl was in the bladder. Position was confirmed fluoroscopically and the bladder was drained and I injected 10 mL of Uro-Jet transurethrally. I then performed a bimanual exam. There were no abnormal pelvic masses. She did have a small urethral caruncle with changes to the external genitalia consistent with postmenopausal findings. By: 0949 1031 Davide Herrera MD /nt
[2021-07-02 09:40] LABS: HEMOGLOBIN 11.1 gm/dL (12.0-15.0); MCH 29.4 pg (26.0-34.0); MCHC 32.7 g/dL (28.0-37.0); MCV 90.1 fL (80.0-100.0); RBC 3.77 mil/uL (4.20-5.00); RDW 15.2 % (10.5-14.5); WBC 3.7 thou/uL (4.0-11.0)
[2021-07-02 09:51] LABS: CALCIUM 9.1 mg/dL (8.5-10.1); CREATININE 1.6 mg/dL (0.6-1.0)
[2021-07-02 09:58] LABS: ALBUMIN 3.7 g/dL (3.4-5.0); TOTAL BILIRUBIN 0.5 mg/dL (0.2-1.0); TOTAL PROTEIN 7.1 g/dL (6.4-8.2)
[2021-07-02 11:55] VITALS: BP 167/54
== END | disposition home or self-care (01) ==
LOC: OR 08:08
PROVIDERS: ATTEND Specialist
DX: N13.0 Hydronephrosis with ureteropelvic junction obstruction (principal); I12.9 Hypertensive chronic kidney disease with stage 1 through stage 4 chronic kidney disease, or unspecified chronic kidney disease; N18.9 Chronic kidney disease, unspecified; E78.5 Hyperlipidemia, unspecified; E03.9 Hypothyroidism, unspecified; F32.9 Major depressive disorder, single episode, unspecified; F41.9 Anxiety disorder, unspecified; Z98.890 Other specified postprocedural states; Z79.899 Other long term (current) drug therapy; Z85.028 Personal history of other malignant neoplasm of stomach; Z20.822 Contact with and (suspected) exposure to COVID-19; Z85.3 Personal history of malignant neoplasm of breast; Z85.528 Personal history of other malignant neoplasm of kidney; Z98.51 Tubal ligation status; Z90.49 Acquired absence of other specified parts of digestive tract; Z88.8 Allergy status to other drugs, medicaments and biological substances; Z88.2 Allergy status to sulfonamides
CPT/HCPCS: 50010; 50101; 51620; 51767; 56674; 56815; 57160; 58565; 62110; 62900; 70005

== ENCOUNTER → 2021-08-19 | Outpatient (CLI) | payer OTHER | LOC: SJCVC 11:35 | PROVIDERS: ATTEND Internal Medicine Cardiovascular Disease | DX: I45.10 Unspecified right bundle-branch block (principal); R94.31 Abnormal electrocardiogram [ECG] [EKG]; I11.9 Hypertensive heart disease without heart failure; E78.00 Pure hypercholesterolemia, unspecified; R60.9 Edema, unspecified; E78.5 Hyperlipidemia, unspecified; I73.9 Peripheral vascular disease, unspecified; I70.1 Atherosclerosis of renal artery; Z79.899 Other long term (current) drug therapy; Z88.0 Allergy status to penicillin; Z88.1 Allergy status to other antibiotic agents; Z88.2 Allergy status to sulfonamides; Z88.5 Allergy status to narcotic agent; Z88.8 Allergy status to other drugs, medicaments and biological substances ==